=== PATIENT | female | born 1975 | race Caucasian/White ===

== ENCOUNTER 2017-02-15 12:16 | Emergency (ER) | payer MEDICAID ==
[~2017-02-15] VITALS: Ht 170.2 cm; Wt 110.4 kg
[~2017-02-15 12:16] MED LIST: METF500T PO
[2017-02-15 12:21] VITALS: BP 141/87
--- NOTE | 2017-02-15 15:04 | NUR ---
Samuel delgadillo in ED - 02/15/17 at 1506 by [email or web address] Patient ambulated to bed 6 with family. RN evaluating patient at bedside.
--- NOTE | 2017-02-15 15:10 | NUR ---
Patient ambulated to bed 7. RN evaluating patient at bedside.
--- NOTE | 2017-02-15 15:20 | NUR ---
PT BIB SELF C/O BILATERAL HIP PAIN THAT STARTED 1 MONTH AND PROGRESSIVELY GETTING WORSE THAT RADIATES TO MID BACK AND LEFT LEG; PATIENT DESCRIBES THE PAIN "LAWRENCE AND COLD" PAIN"; PATIENT STATES SHE WAS WALKING ALOT RECENTLY BUT DENIES ANY RECENT FALLS OR INJURY; PATIENT IS A&OX4, PERRLA, PT DENIES ANY CP, SOB, RR ARE EVEN AND UNLABORED, ABD IS SOFT AND TENDER TO palpation to bilateral upper abd; PT DENIES ANY N/V/D OR URINARY COMPLAINTS; AWAITING ER MD EVUALTION; POSITION TO COMFORT; HOB ELEVATED; ALL NEEDS MET AT THIS TIME; WILL CONTINUE TO MONITOR
--- NOTE | 2017-02-15 15:27 | NUR ---
Dr. Larios evaluating patient at bedside.
[2017-02-15] MEDS ORDERED: KETOROLAC 60 MG/2 ML VIAL IM ONE (15:45)
--- NOTE | 2017-02-15 15:53 | NUR ---
Patient taken to XRAY via wheelchair by tech.
--- NOTE | 2017-02-15 16:18 | NUR ---
Pt back from x-ray and placed back into bed 7.
[2017-02-15] MEDS ORDERED: oxyCODONE/APAP 5/325 MG 1 TAB TAB PO ONE (17:00)
[2017-02-15 18:05] VITALS: BP 112/69
--- NOTE | 2017-02-15 18:05 | NUR ---
Patient discharged with v/s stable. Written and verbal after care instructions given and explained. Patient alert, oriented and verbalized understanding of instructions. Ambulatory with steady gait. All questions addressed prior to discharge. ID band removed. Patient advised to follow up with PMD. Rx of PEROCET AND SOMA given. Patient educated on indication of medication including possible reaction and side effects. Opportunity to ask questions provided and answered.
== END 2017-02-15 18:05 | disposition home or self-care (01) ==
LOC: MED 12:16
DX: M54.42 Lumbago with sciatica, left side (principal); M25.551 Pain in right hip; M25.552 Pain in left hip; E11.9 Type 2 diabetes mellitus without complications; Z90.49 Acquired absence of other specified parts of digestive tract; Z79.84 Long term (current) use of oral hypoglycemic drugs
CPT/HCPCS: 72110; 72170; 81002; 81025; 96372; 99284; J1885

== ENCOUNTER 2017-04-16 22:48 | Emergency (ER) | payer MEDICAID ==
[~2017-04-16] VITALS: Ht 170.2 cm; Wt 108.9 kg
[~2017-04-16 22:48] MED LIST changes: +GLUCOPHAGE500 MG PO; -METF500T PO
[2017-04-16 23:02] VITALS: BP 140/88
--- NOTE | 2017-04-17 | NUR ---
PT TAKEN TO BED 5
--- NOTE | 2017-04-17 00:10 | NUR ---
Dr. Larios evaluating patient at bedside.
--- NOTE | 2017-04-17 00:20 | NUR ---
PATIENT IS A 41 Y/O FEMALE WHO PRESENTS TO THE ED C/O OF NUMBNESS. PT STATES FEELING A NUMBING AND TINGLING SENSATION STARTING IN THE LEFT HAND AND RADIATING TO THE ARM, NECK AND ABDOMEN X1 MONTH. PT DENIES PAIN, N/V/D, SOB. PT AAOX4, RR EVEN/UNLABORED. PT REPOSITIONED FOR COMFORT, BED IN LOWEST POSITION. ER MD DR. BOSTON NOTIFIED. WILL CONTINUE TO MONITOR.
[2017-04-17] MEDS ORDERED: NITROGLYCERIN 0.4 MG TAB SL ONE (01:00)
[2017-04-17] MEDS ORDERED: ASPIRIN 81 MG TAB.CHEW PO ONE (01:00)
[2017-04-17 01:52] VITALS: BP 135/81
--- NOTE | 2017-04-17 01:52 | NUR ---
Samuel delgadillo in ED - 04/17/17 at 0154 by [email or web address] Patient discharged with v/s stable. Written and verbal after care instructions given and explained. Patient verbalized understanding. Ambulatory with steady gait. All questions addressed prior to discharge. Advised to follow up with PMD.
--- NOTE | 2017-04-17 01:56 | NUR ---
Patient discharged with v/s stable. Written and verbal after care instructions given and explained. Patient alert, oriented and verbalized understanding of instructions. Ambulatory with steady gait. All questions addressed prior to discharge. ID band removed. Patient advised to follow up with PMD. Rx of FLEXERIL & IBUPROFEN given. Patient educated on indication of medication including possible reaction and side effects. Opportunity to ask questions provided and answered.
== END 2017-04-17 01:56 | disposition home or self-care (01) ==
LOC: MED 22:48
DX: R07.89 Other chest pain (principal); Z91.013 Allergy to seafood; Z91.09 Other allergy status, other than to drugs and biological substances; E11.9 Type 2 diabetes mellitus without complications

== ENCOUNTER 2017-05-27 18:54 | Emergency (ER) | payer MEDICAID ==
[~2017-05-27] VITALS: Ht 170.2 cm; Wt 107.6 kg
[~2017-05-27 18:54] MED LIST changes: -GLUCOPHAGE500 MG PO; +METF500T PO
[2017-05-27 19:08] VITALS: BP 115/87
[2017-05-27] MEDS ORDERED: KETOROLAC 60 MG/2 ML VIAL IM ONE (20:10)
[2017-05-27 20:31] LABS: BASOPHILS # (AUTO) 0.3 K/uL (0.00-0.22); EOSINOPHILS # (AUTO) 0.4 K/uL (0-0.4); HEMATOCRIT 35.8 % (36-48); HEMOGLOBIN 11.9 g/dL (12.0-16.0); LYMPHOCYTES # (AUTO) 3.5 K/uL (2.5-16.5); MEAN CORPUSCULAR HEMOGLOBIN 27 pg (27-31); MEAN CORPUSCULAR HGB CONC 33 g/dL (33-37); MEAN CORPUSCULAR VOLUME 80 fL (80-94); MONOCYTES # (AUTO) 0.7 K/uL (0.8-1.0); NEUTROPHILS # (AUTO) 5.8 K/uL (1.8-7.7); PLATELET COUNT (AUTO) 324 K/uL (140-450); RED BLOOD CELL COUNT(AUTO) 4.49 MIL/uL (4.20-5.40); RED CELL DISTRIBUTION WIDTH 13.4 % (11.6-13.7); WHITE BLOOD COUNT (AUTO) 10.7 K/uL (4.8-10.8)
[2017-05-27 20:50] LABS: ALBUMIN 3.3 g/dL (3.4-5.0); ANION GAP 11.6 (8-16); CARBON DIOXIDE 28.3 mmol/L (21-32); CREATININE 0.7 mg/dL (0.6-1.3); POTASSIUM 3.9 mmol/L (3.5-5.1); TOTAL BILIRUBIN 0.2 mg/dL (0.0-1.0)
[2017-05-27 22:03] VITALS: BP 119/60
== END 2017-05-27 22:03 | disposition home or self-care (01) ==
LOC: MED 18:54
DX: R10.12 Left upper quadrant pain (principal); R03.0 Elevated blood-pressure reading, without diagnosis of hypertension; E11.9 Type 2 diabetes mellitus without complications; Z79.84 Long term (current) use of oral hypoglycemic drugs; Z90.49 Acquired absence of other specified parts of digestive tract; Z91.013 Allergy to seafood
CPT/HCPCS: 36415; 74022; 74176; 80053; 81002; 81025; 83690; 85025; 96372; 99285; J1885